=== PATIENT | female | born 1960 | race Asian ===

== ENCOUNTER 2023-12-24 17:30 | Inpatient (IN) | payer MEDICARE, OTHER ==
[~2023-12-24] VITALS: Ht 167.6 cm; Wt 51.3 kg
[2023-12-24 17:53] LABS: BASOPHILS # (AUTO) 0.1 K/uL (0.0-0.2); BASOPHILS % (AUTO) 0.6 % (0.0-2.0); EOSINOPHILS % (AUTO) 9.7 % (0.0-6.0); HEMATOCRIT 35 % (33-45); HEMOGLOBIN 11.2 g/dL (11.5-14.8); LYMPHOCYTES # (AUTO) 1.1 K/uL (0.8-4.8); LYMPHOCYTES % (AUTO) 11.6 % (20.0-44.0); MEAN CORPUSCULAR HEMOGLOBIN 28 PG (26.0-33.0); MEAN CORPUSCULAR HGB CONC 32 g/dl (31.0-36.0); MEAN CORPUSCULAR VOLUME 88 fL (82-100); MONOCYTES # (AUTO) 0.9 K/uL (0.1-1.30); MONOCYTES % (AUTO) 9.1 % (2.0-12.0); NEUTROPHILS # (AUTO) 6.8 K/uL (1.8-8.9); PLATELET COUNT (AUTO) 261 K/uL (150-450); RED BLOOD CELL COUNT(AUTO) 3.96 MIL/uL (4.0-5.2); RED CELL DISTRIBUTION WIDTH 16.9 % (11.5-15.0); WHITE BLOOD COUNT (AUTO) 9.9 K/uL (4.3-11.0)
[2023-12-24 18:17] LABS: LACTIC ACID 0.5 mmol/L (0.4-2.0)
[2023-12-24 18:22] LABS: ABG BASE EXCESS 3.1 mmol/L (-2.0-3.0); ABG OXYGEN SATURATION 96.6 % (94.0-98.0); ABG PCO2 52.6 mmHg (32.0-45.0); ABG PH 7.365 (7.350-7.450); ABG PO2 95.5 mmHg (83.0-108.0); ABG TOTAL HEMOGLOBIN 11.6 G/dL (12.0-16.0); COHb 0.2 % (0.5-1.5); MetHb 0.3 % (0.0-1.5); O2Hb 96.1 % (94.0-97.0); SITE, ABG RIGHT RADIAL
[2023-12-24 18:23] LABS: CALCIUM, SERUM 9.4 mg/dL (8.5-10.1); CARBON DIOXIDE 31 mmol/L (21-32); CHLORIDE 92 mmol/L (98-107); CREATININE 5.4 mg/dL (0.6-1.3); GLUCOSE 123 mg/dL (74-106); SODIUM SERUM 130 mmol/L (136-145); UREA NITROGEN, BLOOD 55 mg/dL (7-18)
[2023-12-24 18:26] LABS: NT-PRO BNP > 25000 pg/mL (0-125); POTASSIUM 6.3 mmol/L (3.5-5.1)
[2023-12-24] MEDS ORDERED: SODIUM BICARBONATE SYR 50 MEQ/50 ML DISP.SYRIN ONE (18:51)
[2023-12-24] MEDS ORDERED: DEXTROSE 50%-WATER 50 ML DISP.SYRIN ONE (18:51)
[2023-12-24] MEDS ORDERED: CALCIUM CHLORIDE 1,000 MG/10 ML DISP.SYRIN ONE (18:51)
[2023-12-24] MEDS ORDERED: ATOR20TA PO (18:55)
[2023-12-24] MEDS ORDERED: INSU100I40 SQ (18:55)
[2023-12-24] MEDS ORDERED: AMLO-212 PO (18:55)
[2023-12-24] MEDS ORDERED: ONDA4TAB11 PO (18:55)
[2023-12-24] MEDS ORDERED: SENN-261 PO (18:55)
[2023-12-24] MEDS ORDERED: CLON0.1T PO (18:55)
[2023-12-24] MEDS ORDERED: FOLI0.8T23 PO (18:55)
[2023-12-24] MEDS ORDERED: FERR325T24 PO (18:55)
[2023-12-24] MEDS ORDERED: POLY17PO4 PO (18:55)
[2023-12-24] MEDS ORDERED: VITS42.53 TP (18:55)
[2023-12-24] MEDS ORDERED: CALC667C6 PO (18:55)
[2023-12-24] MEDS ORDERED: ASPI-1169 PO (18:55)
[2023-12-24] MEDS ORDERED: CARV6.252 PO (18:55)
[2023-12-24] MEDS: SODIUM BICARBONATE SYR 50 MEQ/50 ML DISP.SYRIN IV ONE (19:10)
[2023-12-24] MEDS: INSULIN REGULAR, HUMAN 100 UNIT/ML 10 ML VIAL IV ONE (19:10)
[2023-12-24] MEDS: CALCIUM CHLORIDE 1,000 MG/10 ML DISP.SYRIN IV ONE (19:10)
[2023-12-24] MEDS: DEXTROSE 50%-WATER 50 ML DISP.SYRIN IV ONE (19:10)
[2023-12-24] MEDS: ALBUTEROL FS 2.5 MG/3 ML VIAL.NEB NEB ONE (19:21)
[2023-12-24] MEDS ORDERED: ALBUTEROL FS 2.5 MG/3 ML VIAL.NEB ONE (19:22)
[2023-12-24] MEDS ORDERED: MAGNESIUM HYDROXIDE 30 ML UDC PO PRN (19:30)
[2023-12-24] MEDS ORDERED: SENNOSIDES 8.6 MG TABLET PO PRN (19:30)
[2023-12-24] MEDS ORDERED: Z GUARD REMEDY 4 OZ OINT TP PRN (19:30)
[2023-12-24] MEDS ORDERED: MAG HYDROX/AL HYDROX/SIMETH 30 ML UDC PO PRN (19:30)
[2023-12-24 20:00] VITALS: BP 166/58; TEMP 97.8; O2SAT 97
[2023-12-24 21:00] VITALS: BP 177/79; O2SAT 98
[2023-12-24 22:00] VITALS: BP 168/65; O2SAT 98
[2023-12-24] MEDS: ATORVASTATIN 10 MG TABLET PO SCH (22:34)
[2023-12-24] MEDS: BLOOD SUGAR DIAGNOSTIC 1 EACH STRIP IN SCH (22:47)
[2023-12-24] MEDS: INSULIN REGULAR, HUMAN 100 UNIT/ML 3 ML VIAL SQ PRN (22:49)
[2023-12-24 23:00] VITALS: BP 179/71; O2SAT 98
[2023-12-25] VITALS (33 sets, daily range): BP systolic 103–176; BP diastolic 43–80; TEMP 97.6–98; O2SAT 93–100
[2023-12-25] MEDS: CLONIDINE HCL 0.1 MG TABLET PO PRN (01:15)
[2023-12-25] MEDS: ZOLPIDEM TARTRATE 5 MG TABLET PO PRN (01:20)
[2023-12-25] MEDS: hydrALAZINE HCL IV 20 MG VIAL IV ONE (05:25)
[2023-12-25 05:44] LABS: BASOPHILS % (AUTO) 0.4 % (0.0-2.0); EOSINOPHILS # (AUTO) 0.7 K/uL (0.0-0.7); EOSINOPHILS % (AUTO) 7.9 % (0.0-6.0); HEMATOCRIT 33 % (33-45); HEMOGLOBIN 10.4 g/dL (11.5-14.8); LYMPHOCYTES # (AUTO) 1.1 K/uL (0.8-4.8); LYMPHOCYTES % (AUTO) 12.5 % (20.0-44.0); MEAN CORPUSCULAR HEMOGLOBIN 28 PG (26.0-33.0); MEAN CORPUSCULAR HGB CONC 32 g/dl (31.0-36.0); MEAN CORPUSCULAR VOLUME 87 fL (82-100); MONOCYTES # (AUTO) 0.6 K/uL (0.1-1.30); MONOCYTES % (AUTO) 6.9 % (2.0-12.0); NEUTROPHILS # (AUTO) 6.4 K/uL (1.8-8.9); NEUTROPHILS % (AUTO) 72.3 % (43.0-81.0); PLATELET COUNT (AUTO) 226 K/uL (150-450); RED BLOOD CELL COUNT(AUTO) 3.72 MIL/uL (4.0-5.2); RED CELL DISTRIBUTION WIDTH 16.6 % (11.5-15.0); WHITE BLOOD COUNT (AUTO) 8.9 K/uL (4.3-11.0)
[2023-12-25 05:59] LABS: CALCIUM, SERUM 10.2 mg/dL (8.5-10.1); CREATININE 6.1 mg/dL (0.6-1.3); MAGNESIUM 3.5 mg/dL (1.8-2.4)
[2023-12-25 06:05] LABS: PHOSPHORUS 8.1 mg/dL (2.5-4.9); POTASSIUM 6.6 mmol/L (3.5-5.1)
[2023-12-25 06:14] LABS: ABG OXYGEN SATURATION 98.3 % (94.0-98.0); ABG PCO2 56.9 mmHg (32.0-45.0); ABG PH 7.363 (7.350-7.450); ABG PO2 141.9 mmHg (83.0-108.0); ABG TOTAL HEMOGLOBIN 11.1 G/dL (12.0-16.0); COHb 0.8 % (0.5-1.5); MetHb 0.3 % (0.0-1.5); O2Hb 97.2 % (94.0-97.0); SITE, ABG UC
[2023-12-25] MEDS: POLYETHYLENE GLYCOL 3350 17 GM POWD.PACK PO SCH (08:45)
[2023-12-25] MEDS: VIT B CMPLX 3/FA/VIT C/BIOTIN 1 TAB TABLET PO SCH (08:46)
[2023-12-25] MEDS: FERROUS SULFATE (325 MG) 325 MG/TAB TABLET PO SCH (08:46)
[2023-12-25] MEDS: ASPIRIN 81 MG TAB.CHEW PO SCH (08:46)
[2023-12-25] MEDS: CARVEDILOL 6.25 MG TABLET PO SCH (08:46)
[2023-12-25] MEDS: AMLODIPINE BESYLATE 5 MG TABLET PO SCH (08:46)
[2023-12-25] MEDS: CALCIUM ACETATE 667 MG CAP/TAB PO SCH (08:46)
[2023-12-25] MEDS: VITAMINS A AND D 56.7 GM TUBE TP SCH (08:47)
[2023-12-25 08:48] LABS: CALCIUM, SERUM 9.1 mg/dL (8.5-10.1); CREATININE 3.6 mg/dL (0.6-1.3); POTASSIUM 4.4 mmol/L (3.5-5.1)
[2023-12-25] MEDS: IPRATROPIUM NEB FS 0.5 MG/2.5 ML AMPUL.NEB NEB SCH (09:54)
[2023-12-25] MEDS: ALBUTEROL HALF STRENGTH 1.25 MG/3 ML VIAL.NEB NEB SCH (09:54)
[2023-12-25 11:31] LABS: INR 1.1 (0.91-1.10); PROTHROMBIN TIME 11.6 SECS (9.2-11.1)
[2023-12-25 13:28] LABS: ABG BASE EXCESS 4.5 mmol/L (-2.0-3.0); ABG OXYGEN SATURATION 95.6 % (94.0-98.0); ABG PCO2 52.7 mmHg (32.0-45.0); ABG PH 7.382 (7.350-7.450); ABG PO2 85.2 mmHg (83.0-108.0); ABG TOTAL HEMOGLOBIN 11.2 G/dL (12.0-16.0); COHb 1.1 % (0.5-1.5); MetHb 0.3 % (0.0-1.5); O2Hb 94.3 % (94.0-97.0); SITE, ABG RIGHT RADIAL
[2023-12-25 15:48] LABS: TOTAL VOLUME,BODY FLUID 1300 mL
[2023-12-25 16:03] LABS: PROTEIN, BODY FLUID 3.9 G/DL
[2023-12-25 16:12] LABS: WBC, BODY FLUID 189 /cu. mm. (0-200)
[2023-12-25 16:17] LABS: APPEARANCE,SPUN,BODY FLUID CLEAR (CLEAR)
[2023-12-25 16:43] LABS: MACROPHAGES, BODY FLUID 77; POLYNUCLEAR, BODY FLUID 4 % (0-25)
[2023-12-26] VITALS (40 sets, daily range): BP systolic 102–175; BP diastolic 46–89; TEMP 97.6–98.1; O2SAT 85–100
[2023-12-26 05:11] LABS: HEPATITIS Be AG Negative (Negative)
[2023-12-26 05:17] LABS: BASOPHILS % (AUTO) 0.4 % (0.0-2.0); EOSINOPHILS # (AUTO) 0.8 K/uL (0.0-0.7); EOSINOPHILS % (AUTO) 6.8 % (0.0-6.0); HEMATOCRIT 32 % (33-45); HEMOGLOBIN 10.3 g/dL (11.5-14.8); LYMPHOCYTES # (AUTO) 0.9 K/uL (0.8-4.8); MEAN CORPUSCULAR HEMOGLOBIN 28 PG (26.0-33.0); MEAN CORPUSCULAR HGB CONC 32 g/dl (31.0-36.0); MEAN CORPUSCULAR VOLUME 87 fL (82-100); MONOCYTES # (AUTO) 0.9 K/uL (0.1-1.30); MONOCYTES % (AUTO) 8.2 % (2.0-12.0); NEUTROPHILS # (AUTO) 8.9 K/uL (1.8-8.9); NEUTROPHILS % (AUTO) 76.6 % (43.0-81.0); PLATELET COUNT (AUTO) 230 K/uL (150-450); RED BLOOD CELL COUNT(AUTO) 3.65 MIL/uL (4.0-5.2); RED CELL DISTRIBUTION WIDTH 16.4 % (11.5-15.0); WHITE BLOOD COUNT (AUTO) 11.6 K/uL (4.3-11.0)
[2023-12-27] VITALS (14 sets, daily range): BP systolic 132–174; BP diastolic 61–77; TEMP 97.7–98.4; O2SAT 84–100
[2023-12-27 04:11] LABS: HEPATITIS Be AB Non Reactive (Negative)
[2023-12-27 05:58] LABS: BASOPHILS % (AUTO) 0.3 % (0.0-2.0); EOSINOPHILS # (AUTO) 0.6 K/uL (0.0-0.7); EOSINOPHILS % (AUTO) 7.3 % (0.0-6.0); HEMATOCRIT 31 % (33-45); HEMOGLOBIN 10.2 g/dL (11.5-14.8); LYMPHOCYTES # (AUTO) 0.9 K/uL (0.8-4.8); LYMPHOCYTES % (AUTO) 10.1 % (20.0-44.0); MEAN CORPUSCULAR HEMOGLOBIN 29 PG (26.0-33.0); MEAN CORPUSCULAR HGB CONC 33 g/dl (31.0-36.0); MEAN CORPUSCULAR VOLUME 87 fL (82-100); MONOCYTES # (AUTO) 0.7 K/uL (0.1-1.30); MONOCYTES % (AUTO) 8.4 % (2.0-12.0); NEUTROPHILS # (AUTO) 6.2 K/uL (1.8-8.9); NEUTROPHILS % (AUTO) 73.9 % (43.0-81.0); PLATELET COUNT (AUTO) 207 K/uL (150-450); RED BLOOD CELL COUNT(AUTO) 3.55 MIL/uL (4.0-5.2); RED CELL DISTRIBUTION WIDTH 16.3 % (11.5-15.0); WHITE BLOOD COUNT (AUTO) 8.4 K/uL (4.3-11.0)
[2023-12-27 06:29] LABS: CALCIUM, SERUM 8.9 mg/dL (8.5-10.1); CREATININE 3.7 mg/dL (0.6-1.3); POTASSIUM 5.8 mmol/L (3.5-5.1)
[2023-12-27] MEDS: ONDANSETRON HCL/PF 4 MG/2 ML VIAL IVP PRN (14:03)
[2023-12-28] VITALS (18 sets, daily range): BP systolic 123–160; BP diastolic 49–76; TEMP 97.4–99; O2SAT 88–98
[2023-12-28 06:21] LABS: BASOPHILS % (AUTO) 0.4 % (0.0-2.0); EOSINOPHILS # (AUTO) 0.5 K/uL (0.0-0.7); EOSINOPHILS % (AUTO) 5.4 % (0.0-6.0); HEMATOCRIT 30 % (33-45); LYMPHOCYTES # (AUTO) 0.8 K/uL (0.8-4.8); LYMPHOCYTES % (AUTO) 9.1 % (20.0-44.0); MEAN CORPUSCULAR HEMOGLOBIN 29 PG (26.0-33.0); MEAN CORPUSCULAR HGB CONC 33 g/dl (31.0-36.0); MEAN CORPUSCULAR VOLUME 88 fL (82-100); MONOCYTES # (AUTO) 0.8 K/uL (0.1-1.30); MONOCYTES % (AUTO) 9.1 % (2.0-12.0); NEUTROPHILS # (AUTO) 6.4 K/uL (1.8-8.9); PLATELET COUNT (AUTO) 201 K/uL (150-450); RED BLOOD CELL COUNT(AUTO) 3.46 MIL/uL (4.0-5.2); RED CELL DISTRIBUTION WIDTH 16.1 % (11.5-15.0); WHITE BLOOD COUNT (AUTO) 8.5 K/uL (4.3-11.0)
[2023-12-28 06:52] LABS: CALCIUM, SERUM 8.8 mg/dL (8.5-10.1)
[2023-12-28 07:24] LABS: POTASSIUM 6.6 mmol/L (3.5-5.1)
[2023-12-28 21:03] LABS: ABG BASE EXCESS 2.3 mmol/L (-2.0-3.0); ABG OXYGEN SATURATION 89.4 % (94.0-98.0); ABG PCO2 50.1 mmHg (32.0-45.0); ABG PH 7.367 (7.350-7.450); ABG PO2 59.5 mmHg (83.0-108.0); ABG TOTAL HEMOGLOBIN 9.6 G/dL (12.0-16.0); COHb 0.8 % (0.5-1.5); MetHb 0.3 % (0.0-1.5); O2Hb 88.4 % (94.0-97.0); SITE, ABG RIGHT RADIAL
[2023-12-28] MEDS: ZOLPIDEM TARTRATE 5 MG TABLET PO ONE (23:22)
[2023-12-29] VITALS (29 sets, daily range): BP systolic 116–155; BP diastolic 52–76; TEMP 97.9–98.8; O2SAT 87–99
[2023-12-29 04:27] LABS: BASOPHILS % (AUTO) 0.5 % (0.0-2.0); EOSINOPHILS # (AUTO) 0.5 K/uL (0.0-0.7); EOSINOPHILS % (AUTO) 7.1 % (0.0-6.0); HEMATOCRIT 29 % (33-45); HEMOGLOBIN 9.2 g/dL (11.5-14.8); MEAN CORPUSCULAR HEMOGLOBIN 28 PG (26.0-33.0); MEAN CORPUSCULAR HGB CONC 32 g/dl (31.0-36.0); MEAN CORPUSCULAR VOLUME 88 fL (82-100); MONOCYTES # (AUTO) 0.6 K/uL (0.1-1.30); MONOCYTES % (AUTO) 9.6 % (2.0-12.0); NEUTROPHILS # (AUTO) 4.4 K/uL (1.8-8.9); NEUTROPHILS % (AUTO) 67.8 % (43.0-81.0); PLATELET COUNT (AUTO) 193 K/uL (150-450); RED BLOOD CELL COUNT(AUTO) 3.27 MIL/uL (4.0-5.2); RED CELL DISTRIBUTION WIDTH 16.2 % (11.5-15.0); WHITE BLOOD COUNT (AUTO) 6.5 K/uL (4.3-11.0)
[2023-12-29 04:40] LABS: CALCIUM, SERUM 8.9 mg/dL (8.5-10.1); CREATININE 3.5 mg/dL (0.6-1.3); POTASSIUM 5.3 mmol/L (3.5-5.1)
[2023-12-29] MEDS: DEXTROSE 50%-WATER 50 ML DISP.SYRIN IV PRN (10:00)
[2023-12-30] VITALS (34 sets, daily range): BP systolic 96–155; BP diastolic 48–94; TEMP 97.6–98; O2SAT 94–100
[2023-12-30 04:39] LABS: BASOPHILS % (AUTO) 0.4 % (0.0-2.0); EOSINOPHILS # (AUTO) 0.6 K/uL (0.0-0.7); EOSINOPHILS % (AUTO) 7.1 % (0.0-6.0); HEMATOCRIT 29 % (33-45); HEMOGLOBIN 9.2 g/dL (11.5-14.8); LYMPHOCYTES % (AUTO) 11.2 % (20.0-44.0); MEAN CORPUSCULAR HEMOGLOBIN 28 PG (26.0-33.0); MEAN CORPUSCULAR HGB CONC 32 g/dl (31.0-36.0); MEAN CORPUSCULAR VOLUME 87 fL (82-100); MONOCYTES # (AUTO) 0.9 K/uL (0.1-1.30); MONOCYTES % (AUTO) 9.5 % (2.0-12.0); NEUTROPHILS # (AUTO) 6.5 K/uL (1.8-8.9); NEUTROPHILS % (AUTO) 71.8 % (43.0-81.0); PLATELET COUNT (AUTO) 221 K/uL (150-450); RED BLOOD CELL COUNT(AUTO) 3.28 MIL/uL (4.0-5.2); RED CELL DISTRIBUTION WIDTH 15.5 % (11.5-15.0); WHITE BLOOD COUNT (AUTO) 9.1 K/uL (4.3-11.0)
[2023-12-30 04:50] LABS: CALCIUM, SERUM 9.2 mg/dL (8.5-10.1); CREATININE 5.1 mg/dL (0.6-1.3); POTASSIUM 5.9 mmol/L (3.5-5.1)
[2023-12-30] MEDS ORDERED: FLUMAZENIL 0.5 MG VIAL IV PRN (15:30)
[2023-12-30] MEDS ORDERED: NALOXONE PREFILLED SYRINGE 2 MG/2 ML SYRINGE IV PRN (15:30)
[2023-12-30] MEDS ORDERED: MIDAZOLAM HCL 2 MG/2ML VIAL IV PRN (15:30)
[2023-12-30] MEDS ORDERED: FENTANYL PF 250MCG/5ML AMPUL IV PRN (15:30)
[2023-12-30] MEDS: IV NS 0.9% 1,000 ML IV PRN (23:26)
[2023-12-31] VITALS (30 sets, daily range): BP systolic 103–164; BP diastolic 45–132; TEMP 97.8–98.2; O2SAT 83–100
[2023-12-31 04:24] LABS: BASOPHILS % (AUTO) 0.3 % (0.0-2.0); EOSINOPHILS # (AUTO) 0.7 K/uL (0.0-0.7); EOSINOPHILS % (AUTO) 10.5 % (0.0-6.0); HEMATOCRIT 29 % (33-45); HEMOGLOBIN 9.5 g/dL (11.5-14.8); LYMPHOCYTES # (AUTO) 0.5 K/uL (0.8-4.8); LYMPHOCYTES % (AUTO) 7.5 % (20.0-44.0); MEAN CORPUSCULAR HEMOGLOBIN 28 PG (26.0-33.0); MEAN CORPUSCULAR HGB CONC 32 g/dl (31.0-36.0); MEAN CORPUSCULAR VOLUME 86 fL (82-100); MONOCYTES # (AUTO) 0.7 K/uL (0.1-1.30); MONOCYTES % (AUTO) 10.6 % (2.0-12.0); NEUTROPHILS # (AUTO) 4.8 K/uL (1.8-8.9); NEUTROPHILS % (AUTO) 71.1 % (43.0-81.0); PLATELET COUNT (AUTO) 241 K/uL (150-450); RED BLOOD CELL COUNT(AUTO) 3.42 MIL/uL (4.0-5.2); RED CELL DISTRIBUTION WIDTH 15.2 % (11.5-15.0); WHITE BLOOD COUNT (AUTO) 6.7 K/uL (4.3-11.0)
[2023-12-31 04:36] LABS: CALCIUM, SERUM 8.6 mg/dL (8.5-10.1); CREATININE 3.1 mg/dL (0.6-1.3); POTASSIUM 4.3 mmol/L (3.5-5.1)
[2023-12-31] MEDS ORDERED: NEPRO VAN 237 ML CAN PO PRN (14:00)
[2024-01-01] VITALS (33 sets, daily range): BP systolic 113–166; BP diastolic 39–80; TEMP 98–98.7; O2SAT 93–100
[2024-01-01 04:03] LABS: BASOPHILS % (AUTO) 0.5 % (0.0-2.0); EOSINOPHILS # (AUTO) 0.8 K/uL (0.0-0.7); EOSINOPHILS % (AUTO) 9.7 % (0.0-6.0); HEMATOCRIT 30 % (33-45); HEMOGLOBIN 9.6 g/dL (11.5-14.8); LYMPHOCYTES # (AUTO) 1.3 K/uL (0.8-4.8); LYMPHOCYTES % (AUTO) 15.1 % (20.0-44.0); MEAN CORPUSCULAR HEMOGLOBIN 28 PG (26.0-33.0); MEAN CORPUSCULAR HGB CONC 32 g/dl (31.0-36.0); MEAN CORPUSCULAR VOLUME 87 fL (82-100); MONOCYTES # (AUTO) 0.8 K/uL (0.1-1.30); NEUTROPHILS # (AUTO) 5.5 K/uL (1.8-8.9); NEUTROPHILS % (AUTO) 65.7 % (43.0-81.0); PLATELET COUNT (AUTO) 248 K/uL (150-450); RED BLOOD CELL COUNT(AUTO) 3.39 MIL/uL (4.0-5.2); WHITE BLOOD COUNT (AUTO) 8.4 K/uL (4.3-11.0)
[2024-01-01 04:21] LABS: CALCIUM, SERUM 8.6 mg/dL (8.5-10.1); CREATININE 5.3 mg/dL (0.6-1.3); POTASSIUM 6.1 mmol/L (3.5-5.1)
[2024-01-02] VITALS (36 sets, daily range): BP systolic 112–163; BP diastolic 38–72; TEMP 98.1–98.5; O2SAT 95–100
[2024-01-02 04:47] LABS: BASOPHILS % (AUTO) 0.2 % (0.0-2.0); EOSINOPHILS # (AUTO) 0.8 K/uL (0.0-0.7); EOSINOPHILS % (AUTO) 10.2 % (0.0-6.0); HEMATOCRIT 29 % (33-45); HEMOGLOBIN 9.1 g/dL (11.5-14.8); LYMPHOCYTES % (AUTO) 12.9 % (20.0-44.0); MEAN CORPUSCULAR HEMOGLOBIN 28 PG (26.0-33.0); MEAN CORPUSCULAR HGB CONC 32 g/dl (31.0-36.0); MEAN CORPUSCULAR VOLUME 87 fL (82-100); MONOCYTES # (AUTO) 0.8 K/uL (0.1-1.30); MONOCYTES % (AUTO) 10.3 % (2.0-12.0); NEUTROPHILS # (AUTO) 5.4 K/uL (1.8-8.9); NEUTROPHILS % (AUTO) 66.4 % (43.0-81.0); PLATELET COUNT (AUTO) 257 K/uL (150-450); RED CELL DISTRIBUTION WIDTH 15.3 % (11.5-15.0); WHITE BLOOD COUNT (AUTO) 8.1 K/uL (4.3-11.0)
[2024-01-02 05:09] LABS: CALCIUM, SERUM 8.5 mg/dL (8.5-10.1); POTASSIUM 5.5 mmol/L (3.5-5.1)
[2024-01-02] MEDS ORDERED: NEPRO VAN 237 ML CAN PO PRN (13:30)
[2024-01-03] VITALS (33 sets, daily range): BP systolic 102–160; BP diastolic 44–72; TEMP 97.6–98.3; O2SAT 95–100
[2024-01-03 04:55] LABS: BASOPHILS % (AUTO) 0.3 % (0.0-2.0); EOSINOPHILS # (AUTO) 0.8 K/uL (0.0-0.7); EOSINOPHILS % (AUTO) 11.2 % (0.0-6.0); HEMATOCRIT 27 % (33-45); HEMOGLOBIN 8.7 g/dL (11.5-14.8); LYMPHOCYTES # (AUTO) 1.2 K/uL (0.8-4.8); LYMPHOCYTES % (AUTO) 16.4 % (20.0-44.0); MEAN CORPUSCULAR HEMOGLOBIN 28 PG (26.0-33.0); MEAN CORPUSCULAR HGB CONC 33 g/dl (31.0-36.0); MEAN CORPUSCULAR VOLUME 86 fL (82-100); MONOCYTES # (AUTO) 0.6 K/uL (0.1-1.30); MONOCYTES % (AUTO) 8.2 % (2.0-12.0); NEUTROPHILS # (AUTO) 4.6 K/uL (1.8-8.9); NEUTROPHILS % (AUTO) 63.9 % (43.0-81.0); PLATELET COUNT (AUTO) 254 K/uL (150-450); WHITE BLOOD COUNT (AUTO) 7.2 K/uL (4.3-11.0)
[2024-01-03 04:59] LABS: CALCIUM, SERUM 9.1 mg/dL (8.5-10.1); CREATININE 5.1 mg/dL (0.6-1.3); POTASSIUM 5.6 mmol/L (3.5-5.1)
[2024-01-04] VITALS (30 sets, daily range): BP systolic 107–162; BP diastolic 50–87; TEMP 96.8–98.6; O2SAT 89–100
[2024-01-04 03:58] LABS: BASOPHILS % (AUTO) 0.4 % (0.0-2.0); EOSINOPHILS # (AUTO) 0.7 K/uL (0.0-0.7); EOSINOPHILS % (AUTO) 10.5 % (0.0-6.0); HEMATOCRIT 27 % (33-45); HEMOGLOBIN 8.9 g/dL (11.5-14.8); LYMPHOCYTES # (AUTO) 0.9 K/uL (0.8-4.8); LYMPHOCYTES % (AUTO) 13.2 % (20.0-44.0); MEAN CORPUSCULAR HEMOGLOBIN 28 PG (26.0-33.0); MEAN CORPUSCULAR HGB CONC 33 g/dl (31.0-36.0); MEAN CORPUSCULAR VOLUME 85 fL (82-100); MONOCYTES # (AUTO) 0.5 K/uL (0.1-1.30); MONOCYTES % (AUTO) 7.5 % (2.0-12.0); NEUTROPHILS # (AUTO) 4.7 K/uL (1.8-8.9); NEUTROPHILS % (AUTO) 68.4 % (43.0-81.0); PLATELET COUNT (AUTO) 229 K/uL (150-450); RED CELL DISTRIBUTION WIDTH 14.7 % (11.5-15.0); WHITE BLOOD COUNT (AUTO) 6.9 K/uL (4.3-11.0)
[2024-01-04 04:03] LABS: CALCIUM, SERUM 8.7 mg/dL (8.5-10.1); CREATININE 3.8 mg/dL (0.6-1.3); POTASSIUM 4.9 mmol/L (3.5-5.1)
[2024-01-05] VITALS (30 sets, daily range): BP systolic 120–168; BP diastolic 47–88; TEMP 96.5–97.9; O2SAT 70–100
[2024-01-05] MEDS: ACETAMINOPHEN 325 MG TABLET PO PRN (02:39)
[2024-01-05] MEDS: ALTEPLASE CATHFLO 2 MG/VIAL XX ONE (13:49)
[2024-01-06] VITALS (18 sets, daily range): BP systolic 129–164; BP diastolic 58–81; TEMP 97.9–98.1; O2SAT 95–100
[2024-01-06 04:01] LABS: BASOPHILS % (AUTO) 0.5 % (0.0-2.0); EOSINOPHILS # (AUTO) 0.2 K/uL (0.0-0.7); EOSINOPHILS % (AUTO) 2.6 % (0.0-6.0); HEMATOCRIT 29 % (33-45); HEMOGLOBIN 9.1 g/dL (11.5-14.8); LYMPHOCYTES # (AUTO) 0.7 K/uL (0.8-4.8); LYMPHOCYTES % (AUTO) 8.1 % (20.0-44.0); MEAN CORPUSCULAR HEMOGLOBIN 28 PG (26.0-33.0); MEAN CORPUSCULAR HGB CONC 32 g/dl (31.0-36.0); MEAN CORPUSCULAR VOLUME 86 fL (82-100); MONOCYTES # (AUTO) 0.4 K/uL (0.1-1.30); MONOCYTES % (AUTO) 5.1 % (2.0-12.0); NEUTROPHILS # (AUTO) 7.3 K/uL (1.8-8.9); NEUTROPHILS % (AUTO) 83.7 % (43.0-81.0); PLATELET COUNT (AUTO) 233 K/uL (150-450); RED BLOOD CELL COUNT(AUTO) 3.32 MIL/uL (4.0-5.2); RED CELL DISTRIBUTION WIDTH 14.6 % (11.5-15.0); WHITE BLOOD COUNT (AUTO) 8.7 K/uL (4.3-11.0)
[2024-01-06 04:14] LABS: CREATININE 3.5 mg/dL (0.6-1.3); POTASSIUM 5.2 mmol/L (3.5-5.1)
[2024-01-06] MEDS: SODIUM ZIRCONIUM CYCLOSILICATE 5 GM POWD.PACK PO ONE ×2 (08:00→11:14)
[2024-01-07] VITALS (12 sets, daily range): BP systolic 114–144; BP diastolic 49–70; TEMP 97.2–98.6; O2SAT 93–100
[2024-01-07 08:11] LABS: BASOPHILS % (AUTO) 0.2 % (0.0-2.0); EOSINOPHILS # (AUTO) 0.6 K/uL (0.0-0.7); EOSINOPHILS % (AUTO) 7.2 % (0.0-6.0); HEMATOCRIT 27 % (33-45); HEMOGLOBIN 8.8 g/dL (11.5-14.8); LYMPHOCYTES # (AUTO) 0.8 K/uL (0.8-4.8); MEAN CORPUSCULAR HEMOGLOBIN 28 PG (26.0-33.0); MEAN CORPUSCULAR HGB CONC 33 g/dl (31.0-36.0); MEAN CORPUSCULAR VOLUME 86 fL (82-100); MONOCYTES # (AUTO) 0.6 K/uL (0.1-1.30); MONOCYTES % (AUTO) 6.5 % (2.0-12.0); NEUTROPHILS # (AUTO) 6.8 K/uL (1.8-8.9); NEUTROPHILS % (AUTO) 77.1 % (43.0-81.0); PLATELET COUNT (AUTO) 254 K/uL (150-450); RED BLOOD CELL COUNT(AUTO) 3.15 MIL/uL (4.0-5.2); RED CELL DISTRIBUTION WIDTH 14.7 % (11.5-15.0); WHITE BLOOD COUNT (AUTO) 8.8 K/uL (4.3-11.0)
[2024-01-07 08:32] LABS: CREATININE 5.1 mg/dL (0.6-1.3); POTASSIUM 5.4 mmol/L (3.5-5.1)
[2024-01-08] VITALS (9 sets, daily range): BP systolic 134–150; BP diastolic 56–66; TEMP 97.5–98.8; O2SAT 95–100
[2024-01-09] VITALS (9 sets, daily range): BP systolic 123–139; BP diastolic 55–60; TEMP 98.2–98.4; O2SAT 96–99
[2024-01-10] VITALS (7 sets, daily range): BP systolic 128–133; BP diastolic 54–55; TEMP 98.5–98.7; O2SAT 90–98
[2024-01-11] VITALS (7 sets, daily range): BP systolic 145; BP diastolic 55; O2SAT 93–98
[2024-01-11 06:10] LABS: BASOPHILS % (AUTO) 0.3 % (0.0-2.0); EOSINOPHILS # (AUTO) 0.9 K/uL (0.0-0.7); EOSINOPHILS % (AUTO) 11.2 % (0.0-6.0); HEMATOCRIT 26 % (33-45); HEMOGLOBIN 8.2 g/dL (11.5-14.8); LYMPHOCYTES % (AUTO) 12.3 % (20.0-44.0); MEAN CORPUSCULAR HEMOGLOBIN 28 PG (26.0-33.0); MEAN CORPUSCULAR HGB CONC 32 g/dl (31.0-36.0); MEAN CORPUSCULAR VOLUME 87 fL (82-100); MONOCYTES # (AUTO) 0.6 K/uL (0.1-1.30); MONOCYTES % (AUTO) 7.5 % (2.0-12.0); NEUTROPHILS # (AUTO) 5.7 K/uL (1.8-8.9); NEUTROPHILS % (AUTO) 68.7 % (43.0-81.0); PLATELET COUNT (AUTO) 332 K/uL (150-450); RED BLOOD CELL COUNT(AUTO) 2.93 MIL/uL (4.0-5.2); RED CELL DISTRIBUTION WIDTH 14.6 % (11.5-15.0); WHITE BLOOD COUNT (AUTO) 8.3 K/uL (4.3-11.0)
[2024-01-11 06:17] LABS: CALCIUM, SERUM 9.2 mg/dL (8.5-10.1); CREATININE 4.8 mg/dL (0.6-1.3); POTASSIUM 5.3 mmol/L (3.5-5.1)
== END 2024-01-11 19:03 | DRG 291 ==
LOC: ER 17:34 → ICU 18:44 → TELE1 12-26 18:01 → ICU 12-28 21:54 → TELE1 01-06 09:40 → MEDSG1 01-08 10:07
PROVIDERS: ADMIT Nurse Practitioner Acute Care; ATTEND Internal Medicine
PROC: 5A09357 Assistance with Respiratory Ventilation, Less than 24 Consecutive Hours, Continuous Positive Airway Pressure (ICD-10-PCS; principal; 2023-12-24)
PROC: 5A1D70Z Performance of Urinary Filtration, Intermittent, Less than 6 Hours Per Day (ICD-10-PCS; 2023-12-24)
PROC: 0W9B3ZX Drainage of Left Pleural Cavity, Percutaneous Approach, Diagnostic (ICD-10-PCS; 2023-12-25)
PROC: 0W9B30Z Drainage of Left Pleural Cavity with Drainage Device, Percutaneous Approach (ICD-10-PCS; 2023-12-30)
DX: I13.2 Hypertensive heart and chronic kidney disease with heart failure and with stage 5 chronic kidney disease, or end stage renal disease (principal); I50.23 Acute on chronic systolic (congestive) heart failure; J96.01 Acute respiratory failure with hypoxia; J96.02 Acute respiratory failure with hypercapnia; N18.6 End stage renal disease; J90 Pleural effusion, not elsewhere classified; E87.1 Hypo-osmolality and hyponatremia; I48.20 Chronic atrial fibrillation, unspecified; J94.8 Other specified pleural conditions; J98.19 Other pulmonary collapse; E11.22 Type 2 diabetes mellitus with diabetic chronic kidney disease; E78.5 Hyperlipidemia, unspecified; I42.9 Cardiomyopathy, unspecified; I25.10 Atherosclerotic heart disease of native coronary artery without angina pectoris; I25.2 Old myocardial infarction; Z79.82 Long term (current) use of aspirin; Z79.4 Long term (current) use of insulin; Z79.899 Other long term (current) drug therapy; E87.5 Hyperkalemia; Z95.828 Presence of other vascular implants and grafts; Z86.718 Personal history of other venous thrombosis and embolism; Z99.2 Dependence on renal dialysis; Z99.81 Dependence on supplemental oxygen; M89.8X9 Other specified disorders of bone, unspecified site; J45.909 Unspecified asthma, uncomplicated; D63.1 Anemia in chronic kidney disease; Z98.890 Other specified postprocedural states
CPT/HCPCS: 36415; 36600; 71045-TC; 71250-TC; 80048-TC; 82803-TC; 82962-TC; 83605-TC; 83735-TC; 83880; 84100-TC; 84155-TC; 84484-TC; 85025-TC; 85610-TC; 86707; 87040-TC; 87081-TC; 87102-TC; 87350; 88108-TC; 88305-TC; 89051-TC; 90935-TC; 93307-TC; 94760-TC; 94762-TC; 94799-TC; 97110-TC; 97112-TC; 97116-TC; 97530-TC; 99082-TC; A6403; G0378; J0360; J1815; J2250; J2405; J2997; J3010; J3490; J7030

== ENCOUNTER 2024-06-10 12:56 | Inpatient (IN) | payer MEDICARE, OTHER ==
[~2024-06-10] VITALS: Ht 157.5 cm; Wt 50.1 kg
[2024-06-10] VITALS (7 sets, daily range): BP systolic 104–106; BP diastolic 42–52; TEMP 98.1; O2SAT 99
[~2024-06-10 12:56] MED LIST: AMLO-212 PO; ASPI-1169 PO; ATOR20TA PO; CALC667C6 PO; CARV6.252 PO; CLON0.1T PO; FERR325T24 PO; FOLI0.8T23 PO; INSU100I40 SQ; ONDA4TAB11 PO; POLY17PO4 PO; SENN-261 PO; VITS42.53 TP
[2024-06-10 13:21] LABS: BASOPHILS # (AUTO) 0.1 K/uL (0.0-0.2); BASOPHILS % (AUTO) 0.7 % (0.0-2.0); EOSINOPHILS # (AUTO) 0.5 K/uL (0.0-0.7); EOSINOPHILS % (AUTO) 2.7 % (0.0-6.0); HEMATOCRIT 27 % (33-45); HEMOGLOBIN 8.5 g/dL (11.5-14.8); LYMPHOCYTES # (AUTO) 0.3 K/uL (0.8-4.8); LYMPHOCYTES % (AUTO) 1.8 % (20.0-44.0); MEAN CORPUSCULAR HEMOGLOBIN 26 PG (26.0-33.0); MEAN CORPUSCULAR HGB CONC 31 g/dl (31.0-36.0); MEAN CORPUSCULAR VOLUME 85 fL (82-100); MONOCYTES # (AUTO) 0.6 K/uL (0.1-1.30); MONOCYTES % (AUTO) 3.8 % (2.0-12.0); NEUTROPHILS # (AUTO) 15.3 K/uL (1.8-8.9); PLATELET COUNT (AUTO) 253 K/uL (150-450); RED BLOOD CELL COUNT(AUTO) 3.24 MIL/uL (4.0-5.2); RED CELL DISTRIBUTION WIDTH 17.9 % (11.5-15.0); WHITE BLOOD COUNT (AUTO) 16.8 K/uL (4.3-11.0)
[2024-06-10 13:28] LABS: CALCIUM, SERUM 7.7 mg/dL (8.5-10.1); CARBON DIOXIDE 33 mmol/L (21-32); CHLORIDE 98 mmol/L (98-107); CREATININE 2.2 mg/dL (0.6-1.3); GLUCOSE 106 mg/dL (74-106); POTASSIUM 3.7 mmol/L (3.5-5.1); SODIUM SERUM 133 mmol/L (136-145); UREA NITROGEN, BLOOD 14 mg/dL (7-18)
[2024-06-10 13:37] LABS: ABG BASE EXCESS 1.2 mmol/L (-2.0-3.0); ABG OXYGEN SATURATION 99.5 % (94.0-98.0); ABG PCO2 48.9 mmHg (32.0-45.0); ABG PH 7.359 (7.350-7.450); ABG PO2 236.6 mmHg (83.0-108.0); ABG TOTAL HEMOGLOBIN 8.7 G/dL (12.0-16.0); COHb 0.6 % (0.5-1.5); MetHb 0.3 % (0.0-1.5); O2Hb 98.6 % (94.0-97.0); SITE, ABG RIGHT RADIAL
[2024-06-10 13:40] LABS: ALANINE AMINOTRANSFERASE 315 U/L (12-78); ALBUMIN 2.9 g/dL (3.4-5.0); ALKALINE PHOSPHATASE 118 U/L (46-116); ASPARTATE AMINOTRANSFERASE 51 U/L (15-37); BILIRUBIN,DIRECT 0.2 mg/dL (0.0-0.2); BILIRUBIN,TOTAL 0.5 mg/dL (0.2-1.0); NT-PRO BNP > 25000 pg/mL (0-125); TOTAL PROTEIN, SERUM 7.7 g/dL (6.4-8.2)
[2024-06-10] MEDS ORDERED: ALBUTEROL FS 2.5 MG/3 ML VIAL.NEB ONE (13:44)
[2024-06-10] MEDS: ALBUTEROL FS 2.5 MG/3 ML VIAL.NEB NEB ONE (13:46)
[2024-06-10 14:43] LABS: INR 1.16 (0.91-1.10); PARTIAL THROMBOPLASTIN TIME 32.7 SEC (24.3-34.3); PROTHROMBIN TIME 12.2 SECS (9.2-11.1)
[2024-06-10] MEDS ORDERED: ONDANSETRON HCL/PF 4 MG/2 ML VIAL IVP PRN (15:00)
[2024-06-10] MEDS ORDERED: DEXTROSE 50%-WATER 50 ML DISP.SYRIN IV PRN (15:00)
[2024-06-10] MEDS ORDERED: ALBUTEROL FS 2.5 MG/0.5 ML VIAL.NEB NEB PRN (15:00)
[2024-06-10] MEDS ORDERED: MORPHINE SULFATE INJ 2 MG/ML DISP.SYRIN IV PRN (15:00)
[2024-06-10] MEDS ORDERED: ACETAMINOPHEN 325 MG TABLET PO PRN (15:00)
[2024-06-10] MEDS ORDERED: hydrALAZINE HCL IV 20 MG VIAL IV PRN (15:00)
[2024-06-10] MEDS ORDERED: ZINC57OI4 TP (15:13)
[2024-06-10] MEDS ORDERED: SEVE800T8 PO (15:13)
[2024-06-10] MEDS ORDERED: METO-295 PO (15:13)
[2024-06-10] MEDS ORDERED: AMIN30LI2 PO (15:13)
[2024-06-10] MEDS: FERROUS SULFATE (325 MG) 325 MG/TAB TABLET PO SCH (17:00)
[2024-06-10] MEDS: DOCUSATE SODIUM LIQ 100 MG/10 ML UDC PO SCH (17:00)
[2024-06-10] MEDS: CARVEDILOL 6.25 MG TABLET PO SCH (17:00)
[2024-06-10] MEDS: BLOOD SUGAR DIAGNOSTIC 1 EACH STRIP IN SCH (17:49)
[2024-06-10] MEDS: CEFEPIME 1 GM in IV D5W 50 ML IV SCH (17:49)
[2024-06-10] MEDS: VANCOMYCIN HCL 1.25 GM in IV D5W 250 ML IV ONE (17:59)
[2024-06-10] MEDS: IPRATROPIUM NEB FS 0.5 MG/2.5 ML AMPUL.NEB NEB SCH (20:33)
[2024-06-10] MEDS: HEPARIN SODIUM, PORCINE 5000 UNITS/1 ML VIAL SQ SCH (21:00)
[2024-06-10 21:08] LABS: EOSINOPHILS % (MANUAL) 5 % (0-4); LYMPHOCYTES % (MANUAL) 5 % (16-48); MONOCYTES % (MANUAL) 6 % (0-11.0); NEUTROPHILS % (MANUAL) 84 (42-76); PLATELET ESTIMATE ADEQUATE
[2024-06-10 21:09] LABS: ANISOCYTOSIS 1+
[2024-06-10] MEDS: ATORVASTATIN 10 MG TABLET PO SCH (21:30)
[2024-06-10] MEDS: INSULIN REGULAR, HUMAN 100 UNIT/ML 3 ML VIAL SQ PRN (22:24)
[2024-06-11] VITALS (18 sets, daily range): BP systolic 104–149; BP diastolic 43–60; TEMP 97.3–98.4; O2SAT 94–100
[2024-06-11 07:21] LABS: EOSINOPHILS # (AUTO) 0.3 K/uL (0.0-0.7); EOSINOPHILS % (AUTO) 1.9 % (0.0-6.0); HEMATOCRIT 26 % (33-45); HEMOGLOBIN 7.9 g/dL (11.5-14.8); LYMPHOCYTES # (AUTO) 0.6 K/uL (0.8-4.8); LYMPHOCYTES % (AUTO) 3.5 % (20.0-44.0); MEAN CORPUSCULAR HEMOGLOBIN 26 PG (26.0-33.0); MEAN CORPUSCULAR HGB CONC 31 g/dl (31.0-36.0); MEAN CORPUSCULAR VOLUME 86 fL (82-100); MONOCYTES # (AUTO) 0.7 K/uL (0.1-1.30); MONOCYTES % (AUTO) 4.6 % (2.0-12.0); NEUTROPHILS # (AUTO) 14.3 K/uL (1.8-8.9); PLATELET COUNT (AUTO) 238 K/uL (150-450); RED BLOOD CELL COUNT(AUTO) 2.98 MIL/uL (4.0-5.2); WHITE BLOOD COUNT (AUTO) 15.9 K/uL (4.3-11.0)
[2024-06-11 07:45] LABS: ALBUMIN 2.4 g/dL (3.4-5.0); BILIRUBIN,TOTAL 0.4 mg/dL (0.2-1.0); CALCIUM, SERUM 8.2 mg/dL (8.5-10.1); CREATININE 3.5 mg/dL (0.6-1.3); MAGNESIUM 2.4 mg/dL (1.8-2.4); PHOSPHORUS 4.6 mg/dL (2.5-4.9); TOTAL PROTEIN, SERUM 6.8 g/dL (6.4-8.2)
[2024-06-11] MEDS: POLYETHYLENE GLYCOL 3350 17 GM POWD.PACK PO SCH (09:47)
[2024-06-11] MEDS: AMLODIPINE BESYLATE 5 MG TABLET PO SCH (09:48)
[2024-06-11] MEDS: ASPIRIN 81 MG TAB.CHEW PO SCH (09:49)
[2024-06-11] MEDS: CALCIUM ACETATE 667 MG CAP/TAB PO SCH (09:52)
[2024-06-11] MEDS: ALBUTEROL FS 2.5 MG/0.5 ML VIAL.NEB NEB SCH (13:05)
[2024-06-11] MEDS: ACETYLCYSTEINE 10% SOLN 400 MG/4 ML VIAL NEB SCH (15:08)
[2024-06-12] VITALS (15 sets, daily range): BP systolic 106–148; BP diastolic 51–60; TEMP 97.7–99.1; O2SAT 95–100
[2024-06-12] MEDS: ZOLPIDEM TARTRATE 5 MG TABLET PO ONE (00:05)
[2024-06-12] MEDS ORDERED: VANCOMYCIN 750 MG in IV D5W 250 ML IV SCH (05:00)
[2024-06-12 07:04] LABS: POTASSIUM 3.9 mmol/L (3.5-5.1)
[2024-06-12 10:39] LABS: BASOPHILS # (AUTO) 0.1 K/uL (0.0-0.2); BASOPHILS % (AUTO) 0.7 % (0.0-2.0); EOSINOPHILS # (AUTO) 0.4 K/uL (0.0-0.7); EOSINOPHILS % (AUTO) 3.7 % (0.0-6.0); HEMATOCRIT 27 % (33-45); HEMOGLOBIN 8.4 g/dL (11.5-14.8); LYMPHOCYTES # (AUTO) 0.8 K/uL (0.8-4.8); LYMPHOCYTES % (AUTO) 7.5 % (20.0-44.0); MEAN CORPUSCULAR HEMOGLOBIN 27 PG (26.0-33.0); MEAN CORPUSCULAR HGB CONC 31 g/dl (31.0-36.0); MEAN CORPUSCULAR VOLUME 85 fL (82-100); MONOCYTES # (AUTO) 0.6 K/uL (0.1-1.30); MONOCYTES % (AUTO) 5.8 % (2.0-12.0); NEUTROPHILS # (AUTO) 8.4 K/uL (1.8-8.9); NEUTROPHILS % (AUTO) 82.3 % (43.0-81.0); PLATELET COUNT (AUTO) 303 K/uL (150-450); RED BLOOD CELL COUNT(AUTO) 3.14 MIL/uL (4.0-5.2); RED CELL DISTRIBUTION WIDTH 18.5 % (11.5-15.0); WHITE BLOOD COUNT (AUTO) 10.2 K/uL (4.3-11.0)
[2024-06-13] VITALS (13 sets, daily range): BP systolic 144–147; BP diastolic 53–69; TEMP 97.5–98.4; O2SAT 95–100
[2024-06-13 07:31] LABS: CALCIUM, SERUM 8.9 mg/dL (8.5-10.1); CREATININE 4.5 mg/dL (0.6-1.3); POTASSIUM 5.7 mmol/L (3.5-5.1)
[2024-06-13 09:20] LABS: BASOPHILS # (AUTO) 0.1 K/uL (0.0-0.2); BASOPHILS % (AUTO) 0.7 % (0.0-2.0); EOSINOPHILS # (AUTO) 0.5 K/uL (0.0-0.7); EOSINOPHILS % (AUTO) 4.7 % (0.0-6.0); HEMATOCRIT 26 % (33-45); LYMPHOCYTES # (AUTO) 0.9 K/uL (0.8-4.8); LYMPHOCYTES % (AUTO) 9.5 % (20.0-44.0); MEAN CORPUSCULAR HEMOGLOBIN 26 PG (26.0-33.0); MEAN CORPUSCULAR HGB CONC 31 g/dl (31.0-36.0); MEAN CORPUSCULAR VOLUME 84 fL (82-100); MONOCYTES # (AUTO) 0.8 K/uL (0.1-1.30); MONOCYTES % (AUTO) 8.4 % (2.0-12.0); NEUTROPHILS # (AUTO) 7.6 K/uL (1.8-8.9); NEUTROPHILS % (AUTO) 76.7 % (43.0-81.0); PLATELET COUNT (AUTO) 310 K/uL (150-450); RED BLOOD CELL COUNT(AUTO) 3.07 MIL/uL (4.0-5.2); RED CELL DISTRIBUTION WIDTH 18.4 % (11.5-15.0); WHITE BLOOD COUNT (AUTO) 9.8 K/uL (4.3-11.0)
[2024-06-14] VITALS (7 sets, daily range): BP systolic 153; BP diastolic 60; O2SAT 95–99
[2024-06-14] MEDS ORDERED: VANCOMYCIN 1 GM /D5W 250 ML PB IV ONE (03:50)
[2024-06-14] MEDS: VANCOMYCIN POST DIALYSIS 500MG IV PRN (04:00)
[2024-06-14 06:58] LABS: CALCIUM, SERUM 8.7 mg/dL (8.5-10.1); POTASSIUM 4.6 mmol/L (3.5-5.1)
[2024-06-14] MEDS ORDERED: AMOX-430 PO (12:09)
== END 2024-06-14 16:04 | DRG 871 ==
LOC: ER 12:59 → TELE 16:24 → MED 06-12 09:00
PROVIDERS: ADMIT Internal Medicine; ATTEND Internal Medicine
PROC: 5A1D70Z Performance of Urinary Filtration, Intermittent, Less than 6 Hours Per Day (ICD-10-PCS; principal; 2024-06-11)
DX: A41.9 Sepsis, unspecified organism (principal); I21.A1 Myocardial infarction type 2; J69.0 Pneumonitis due to inhalation of food and vomit; J96.21 Acute and chronic respiratory failure with hypoxia; N18.6 End stage renal disease; I13.2 Hypertensive heart and chronic kidney disease with heart failure and with stage 5 chronic kidney disease, or end stage renal disease; E87.1 Hypo-osmolality and hyponatremia; R65.20 Severe sepsis without septic shock; Z99.2 Dependence on renal dialysis; I25.10 Atherosclerotic heart disease of native coronary artery without angina pectoris; I50.9 Heart failure, unspecified; M89.8X9 Other specified disorders of bone, unspecified site; E11.22 Type 2 diabetes mellitus with diabetic chronic kidney disease; E78.5 Hyperlipidemia, unspecified; Z79.82 Long term (current) use of aspirin; Z79.4 Long term (current) use of insulin; Z79.899 Other long term (current) drug therapy; R74.01 Elevation of levels of liver transaminase levels; I25.2 Old myocardial infarction; D64.9 Anemia, unspecified; I48.0 Paroxysmal atrial fibrillation; J45.909 Unspecified asthma, uncomplicated; Y95 Nosocomial condition; Z86.718 Personal history of other venous thrombosis and embolism; Z95.828 Presence of other vascular implants and grafts
CPT/HCPCS: 36415; 36600; 71045-TC; 71250-TC; 74230-TC; 80048-TC; 80053-TC; 80076-TC; 80202-TC; 82803-TC; 82962-TC; 83735-TC; 83880; 84100-TC; 84484-TC; 85025-TC; 85730-TC; 87081-TC; 90935-TC; 92526; 92611-TC; 93307-TC; 94761-TC; 94799-TC; 97530-TC; A4223; G0378; J0692; J1644; J1815; J3370; J7050; J7060

== ENCOUNTER 2024-09-21 14:43 | Inpatient (IN) | payer MEDICARE, OTHER ==
[~2024-09-21] VITALS: Ht 152.4 cm; Wt 46.7 kg
[~2024-09-21 14:43] MED LIST changes: +AMIN30LI2 PO; +AMOX-430 PO; -CALC667C6 PO; +METO-295 PO; -ONDA4TAB11 PO; +SEVE800T8 PO; +ZINC57OI4 TP
[2024-09-21] MEDS ORDERED: ACETAMINOPHEN ES 500 MG TABLET ONE (14:56)
[2024-09-21] MEDS: AMLODIPINE BESYLATE 5 MG TABLET PO ONE (15:00)
[2024-09-21] MEDS: CLONIDINE HCL 0.1 MG TABLET PO ONE (15:00)
[2024-09-21] MEDS: ACETAMINOPHEN ES 500 MG TABLET PO ONE (15:05)
[2024-09-21 15:24] LABS: PLATELET COUNT (AUTO) 294 K/uL (150-450); RED BLOOD CELL COUNT(AUTO) 4.28 MIL/uL (4.0-5.2); RED CELL DISTRIBUTION WIDTH 16.7 % (11.5-15.0); WHITE BLOOD COUNT (AUTO) 3.1 K/uL (4.3-11.0)
[2024-09-21 15:37] LABS: CALCIUM, SERUM 8.7 mg/dL (8.5-10.1); CREATININE 3.3 mg/dL (0.6-1.3); SODIUM SERUM 136 mmol/L (136-145); UREA NITROGEN, BLOOD 28 mg/dL (7-18)
[2024-09-21 15:42] LABS: ASPARTATE AMINOTRANSFERASE 18 U/L (15-37); TOTAL PROTEIN, SERUM 7.5 g/dL (6.4-8.2)
[2024-09-21 16:52] LABS: BASOPHILS % (MANUAL) 0 % (0.0-2.0); EOSINOPHILS % (MANUAL) 3 % (0-4); LYMPHOCYTES % (MANUAL) 11 % (16-48); MONOCYTES % (MANUAL) 17 % (0-11.0); NEUTROPHILS % (MANUAL) 69 (42-76)
[2024-09-21 16:53] LABS: PLATELET ESTIMATE ADEQUATE
[2024-09-21 18:51] VITALS: BP 140/58; TEMP 98.8; O2SAT 100
[2024-09-21] MEDS ORDERED: ACETAMINOPHEN 325 MG TABLET PO PRN (19:00)
[2024-09-21] MEDS ORDERED: MAG HYDROX/AL HYDROX/SIMETH 30 ML UDC PO PRN (19:00)
[2024-09-21] MEDS ORDERED: Z GUARD REMEDY 4 OZ OINT TP PRN (19:00)
[2024-09-21] MEDS ORDERED: ZOLPIDEM TARTRATE 5 MG TABLET PO PRN (19:00)
[2024-09-21] MEDS ORDERED: MAGNESIUM HYDROXIDE 30 ML UDC PO PRN (19:00)
[2024-09-21] MEDS ORDERED: ONDANSETRON HCL/PF 4 MG/2 ML VIAL IVP PRN (19:00)
[2024-09-21] MEDS ORDERED: DOSING PER PHARMACY-VANCOMYCIN IV XX PRN (19:00)
[2024-09-21] MEDS: VANCOMYCIN HCL 1.25 GM in IV D5W 250 ML IV ONE (19:57)
[2024-09-21 20:00] VITALS: BP 137/64; TEMP 98.2; O2SAT 99
[2024-09-21] MEDS: HEPARIN SODIUM, PORCINE 5000 UNITS/1 ML VIAL SQ SCH (21:16)
[2024-09-21] MEDS: PIPERACILLIN /TAZOBACTAM 2.25 G in IV D5W 50 ML IV SCH (22:14)
[2024-09-22] MEDS ORDERED: DEXTROSE 50%-WATER 50 ML DISP.SYRIN IV PRN (03:00)
[2024-09-22 05:00] VITALS: BP 136/77; TEMP 98.2; O2SAT 99
[2024-09-22 05:09] LABS: ABG BASE EXCESS 4.5 mmol/L (-2.0-3.0); ABG OXYGEN SATURATION 96.2 % (94.0-98.0); ABG PCO2 59.0 mmHg (32.0-45.0); ABG PH 7.344 (7.350-7.450); ABG PO2 93.6 mmHg (83.0-108.0); ABG TOTAL HEMOGLOBIN 10.9 G/dL (12.0-16.0); FLOW, BLOOD GAS 2.50 L/min (0.00-30.00); FRACTIONATED INSPIRED OXYGEN 30.0 %; SITE, ABG RIGHT RADIAL
[2024-09-22] MEDS: BLOOD SUGAR DIAGNOSTIC 1 EACH STRIP IN SCH (06:35)
[2024-09-22] MEDS: INSULIN REGULAR, HUMAN 100 UNIT/ML 3 ML VIAL SQ PRN (06:35)
[2024-09-22 07:17] LABS: PLATELET COUNT (AUTO) 254 K/uL (150-450); RED BLOOD CELL COUNT(AUTO) 3.93 MIL/uL (4.0-5.2); RED CELL DISTRIBUTION WIDTH 16.8 % (11.5-15.0); WHITE BLOOD COUNT (AUTO) 4.2 K/uL (4.3-11.0)
[2024-09-22 07:23] LABS: CALCIUM, SERUM 8.7 mg/dL (8.5-10.1); CREATININE 4.4 mg/dL (0.6-1.3); PHOSPHORUS 5.4 mg/dL (2.5-4.9); SODIUM SERUM 136.0 mmol/L (136-145); UREA NITROGEN, BLOOD 38.0 mg/dL (7-18)
[2024-09-22 08:00] VITALS: BP 143/65; TEMP 98.1; O2SAT 98
[2024-09-22] MEDS: dexaMETHasone SOD PHOSPHATE 10 MG/ML VIAL IV SCH (08:23)
[2024-09-22 08:56] LABS: EOSINOPHILS % (MANUAL) 5 % (0-4); LYMPHOCYTES % (MANUAL) 18 % (16-48); MONOCYTES % (MANUAL) 19 % (0-11.0); NEUTROPHILS % (MANUAL) 58 (42-76); PLATELET ESTIMATE ADEQUATE
[2024-09-22] MEDS: IPRATROPIUM/ALBUTEROL INHALER IH SCH (11:44)
[2024-09-22 12:00] VITALS: BP 153/59; TEMP 98.6; O2SAT 99
[2024-09-22 16:00] VITALS: BP 178/72; TEMP 98.2; O2SAT 96
[2024-09-22] MEDS: CLONIDINE HCL 0.1 MG TABLET PO PRN (16:34)
[2024-09-22] MEDS: REMDESIVIR (CHARGED) 100 MG in IV NS 0.9% 80 ML IV SCH (16:56)
[2024-09-22 20:05] VITALS: BP 122/62; TEMP 98.2; O2SAT 99
[2024-09-23] VITALS: BP 170/71; TEMP 98; O2SAT 100
[2024-09-23 04:00] VITALS: BP 156/59; TEMP 98; O2SAT 99
[2024-09-23 07:30] LABS: PLATELET COUNT (AUTO) 294 K/uL (150-450); RED BLOOD CELL COUNT(AUTO) 4.38 MIL/uL (4.0-5.2); RED CELL DISTRIBUTION WIDTH 16.5 % (11.5-15.0)
[2024-09-23 07:44] LABS: WHITE BLOOD COUNT (AUTO) 1.8 K/uL (4.3-11.0)
[2024-09-23 07:55] LABS: INR 1.05 (0.91-1.10)
[2024-09-23 08:00] VITALS: BP 139/69; TEMP 98.6; O2SAT 97
[2024-09-23 08:26] LABS: ASPARTATE AMINOTRANSFERASE 30.0 U/L (15-37); TOTAL PROTEIN, SERUM 7.5 g/dL (6.4-8.2)
[2024-09-23 08:41] LABS: ASPARTATE AMINOTRANSFERASE 16.0 U/L (15-37); CALCIUM, SERUM 8.3 mg/dL (8.5-10.1); CREATININE 4.0 mg/dL (0.6-1.3); PHOSPHORUS 5.4 mg/dL (2.5-4.9); SODIUM SERUM 138.0 mmol/L (136-145); TOTAL PROTEIN, SERUM 7.4 g/dL (6.4-8.2); UREA NITROGEN, BLOOD 40.0 mg/dL (7-18)
[2024-09-23 11:25] LABS: LYMPHOCYTES % (MANUAL) 27 % (16-48); MONOCYTES % (MANUAL) 13 % (0-11.0); NEUTROPHILS % (MANUAL) 60 (42-76); PLATELET ESTIMATE ADEQUATE
[2024-09-23] MEDS ORDERED: DEXTROSE 50%-WATER 50 ML DISP.SYRIN IV PRN (11:30)
[2024-09-23 12:00] VITALS: BP 167/68; TEMP 98.2; O2SAT 99
[2024-09-23 16:00] VITALS: BP 160/65; TEMP 98; O2SAT 99
[2024-09-23] MEDS: VANCOMYCIN POST DIALYSIS 500MG IV PRN (16:36)
[2024-09-23] MEDS: BLOOD SUGAR DIAGNOSTIC 1 EACH STRIP VI SCH (17:04)
[2024-09-23] MEDS: INSULIN REGULAR, HUMAN 100 UNIT/ML 3 ML VIAL SQ PRN (17:05)
[2024-09-23 20:00] VITALS: BP 171/124; TEMP 97.9; O2SAT 97
[2024-09-23] MEDS: *INSULIN REGULAR(HUMULIN R)HUM 100 UNIT/ML VIAL SQ PRN (23:21)
[2024-09-24] VITALS (7 sets, daily range): BP systolic 160–185; BP diastolic 65–90; TEMP 97.5–98.2; O2SAT 99–100
[2024-09-24 08:25] LABS: PLATELET COUNT (AUTO) 313 K/uL (150-450); RED BLOOD CELL COUNT(AUTO) 4.39 MIL/uL (4.0-5.2); RED CELL DISTRIBUTION WIDTH 16.6 % (11.5-15.0); WHITE BLOOD COUNT (AUTO) 3.4 K/uL (4.3-11.0)
[2024-09-24 08:27] LABS: INR 1.08 (0.91-1.10)
[2024-09-24 09:13] LABS: ASPARTATE AMINOTRANSFERASE 18.0 U/L (15-37); CALCIUM, SERUM 8.2 mg/dL (8.5-10.1); CREATININE 3.2 mg/dL (0.6-1.3); SODIUM SERUM 137.0 mmol/L (136-145); TOTAL PROTEIN, SERUM 6.7 g/dL (6.4-8.2); UREA NITROGEN, BLOOD 38.0 mg/dL (7-18)
[2024-09-24 09:40] LABS: EOSINOPHILS % (MANUAL) 1 % (0-4); LYMPHOCYTES % (MANUAL) 40 % (16-48); MONOCYTES % (MANUAL) 13 % (0-11.0); NEUTROPHILS % (MANUAL) 46 (42-76); PLATELET ESTIMATE ADEQUATE
[2024-09-24] MEDS: AMLODIPINE BESYLATE 5 MG TABLET PO SCH (16:23)
[2024-09-24] MEDS: CARVEDILOL 6.25 MG TABLET PO SCH (16:23)
[2024-09-25] VITALS (8 sets, daily range): BP systolic 125–175; BP diastolic 59–90; TEMP 97.5–98.5; O2SAT 95–100
[2024-09-25 07:49] LABS: PLATELET COUNT (AUTO) 337 K/uL (150-450); RED BLOOD CELL COUNT(AUTO) 4.48 MIL/uL (4.0-5.2); RED CELL DISTRIBUTION WIDTH 17.2 % (11.5-15.0); WHITE BLOOD COUNT (AUTO) 4.9 K/uL (4.3-11.0)
[2024-09-25 08:00] LABS: INR 1.15 (0.91-1.10)
[2024-09-25 08:26] LABS: ASPARTATE AMINOTRANSFERASE 17.0 U/L (15-37); CALCIUM, SERUM 8.4 mg/dL (8.5-10.1); CREATININE 4.7 mg/dL (0.6-1.3); SODIUM SERUM 131.0 mmol/L (136-145); TOTAL PROTEIN, SERUM 6.5 g/dL (6.4-8.2); UREA NITROGEN, BLOOD 67.0 mg/dL (7-18)
[2024-09-25] MEDS: hydrALAZINE HCL IV 20 MG VIAL IV PRN (18:05)
[2024-09-28 02:07] LABS: HEPATITIS B SURFACE AB (QUAL) Non Reactive (.)
== END 2024-09-25 21:01 | DRG 871 ==
LOC: ER 14:50 → MEDSG1 17:21 → ICUOV 09-22 07:15 → TELE-TD 09-22 08:34 → TELE1 09-23 09:21 → MEDSG1 09-25 14:25
PROVIDERS: ADMIT Registered Nurse Psychiatric/Mental Health
PROC: XW033E5 Introduction of Remdesivir Anti-infective into Peripheral Vein, Percutaneous Approach, New Technology Group 5 (ICD-10-PCS; principal; 2024-09-22)
PROC: 5A1D70Z Performance of Urinary Filtration, Intermittent, Less than 6 Hours Per Day (ICD-10-PCS; 2024-09-23)
DX: A41.89 Other specified sepsis (principal); J12.82 Pneumonia due to coronavirus disease 2019; N18.6 End stage renal disease; U07.1 COVID-19; J96.21 Acute and chronic respiratory failure with hypoxia; J96.22 Acute and chronic respiratory failure with hypercapnia; I13.2 Hypertensive heart and chronic kidney disease with heart failure and with stage 5 chronic kidney disease, or end stage renal disease; I50.22 Chronic systolic (congestive) heart failure; E87.3 Alkalosis; J81.1 Chronic pulmonary edema; I48.20 Chronic atrial fibrillation, unspecified; I25.10 Atherosclerotic heart disease of native coronary artery without angina pectoris; I25.2 Old myocardial infarction; E11.22 Type 2 diabetes mellitus with diabetic chronic kidney disease; Z99.2 Dependence on renal dialysis; E78.5 Hyperlipidemia, unspecified; Z79.82 Long term (current) use of aspirin; Z79.899 Other long term (current) drug therapy; E88.09 Other disorders of plasma-protein metabolism, not elsewhere classified; H91.93 Unspecified hearing loss, bilateral; Z95.828 Presence of other vascular implants and grafts; Z79.4 Long term (current) use of insulin; J45.909 Unspecified asthma, uncomplicated; D64.9 Anemia, unspecified; Z86.718 Personal history of other venous thrombosis and embolism; Z98.61 Coronary angioplasty status
CPT/HCPCS: 36415; 36600; 71045-TC; 80048-TC; 80053-TC; 80076-TC; 80202-TC; 82962-TC; 83735-TC; 83880; 84100-TC; 84484-TC; 85025-TC; 85027-TC; 85378-TC; 85610-TC; 85730-TC; 86140-TC; 86706; 87040-TC; 87081-TC; 87340; 90935-TC; A6213; G0378; J0360; J1100; J1644; J1815; J2048; J2543; J3373; J7030; J7050; J7060

== ENCOUNTER 2025-02-08 07:02 | Inpatient (IN) | payer MEDICARE, OTHER ==
[~2025-02-08] VITALS: Ht 162.6 cm; Wt 36.7 kg
[~2025-02-08 07:02] MED LIST changes: -AMIN30LI2 PO; -AMOX-430 PO; -VITS42.53 TP
[2025-02-08] MEDS ORDERED: CEFTRIAXONE 1GM BAG (ER ONLY) 50 ML IV ONE (07:37)
[2025-02-08] MEDS: IV NS 0.9% 1,000 ML BAG IV ONE (07:41)
[2025-02-08] MEDS: CEFTRIAXONE 1 G in IV D5W 50 ML IV ONE (07:42)
[2025-02-08 07:45] LABS: PLATELET COUNT (AUTO) 126 K/uL (150-450); RED BLOOD CELL COUNT(AUTO) 3.25 MIL/uL (4.0-5.2); RED CELL DISTRIBUTION WIDTH 16.2 % (11.5-15.0); WHITE BLOOD COUNT (AUTO) 5.9 K/uL (4.3-11.0)
[2025-02-08 07:56] LABS: CALCIUM, SERUM 8.7 mg/dL (8.5-10.1); CREATININE 4.7 mg/dL (0.6-1.3); SODIUM SERUM 136 mmol/L (136-145); UREA NITROGEN, BLOOD 45 mg/dL (7-18)
[2025-02-08 07:59] LABS: INR 1.02 (0.91-1.10)
[2025-02-08 08:02] LABS: ASPARTATE AMINOTRANSFERASE 18 U/L (15-37); TOTAL PROTEIN, SERUM 7.1 g/dL (6.4-8.2)
[2025-02-08 08:16] LABS: LACTIC ACID 0.4 mmol/L (0.4-2.0)
[2025-02-08] MEDS ORDERED: AMIN30LI66 PO (08:32)
[2025-02-08 09:00] VITALS: BP 100/48; TEMP 97.9; O2SAT 98
[2025-02-08] MEDS ORDERED: ZOLPIDEM TARTRATE 5 MG TABLET PO PRN (09:30)
[2025-02-08] MEDS ORDERED: MAGNESIUM HYDROXIDE 30 ML UDC PO PRN (09:30)
[2025-02-08] MEDS ORDERED: MAG HYDROX/AL HYDROX/SIMETH 30 ML UDC PO PRN (09:30)
[2025-02-08 09:32] LABS: APPEARANCE,URINE TURBID (CLEAR); BLOOD, URINE 2+ Ery/uL (NEGATIVE); LEUKOCYTE ESTERASE ,URINE 3+ (NEGATIVE); NITRITE, URINE POSITIVE (NEGATIVE); UGLUCOSE NEGATIVE (NEGATIVE)
[2025-02-08] MEDS: ENOXAPARIN SODIUM 30 MG/0.3 ML DISP.SYRIN SQ SCH (09:53)
[2025-02-08 09:54] LABS: ADD URINE CULTURE YES
[2025-02-08 11:30] VITALS: BP 99/40; TEMP 97.9; O2SAT 100
[2025-02-08 13:21] LABS: IRON, SERUM 59.0 ug/dl (50-175)
[2025-02-08 14:04] LABS: LDL 29.0 mg/dL (0-99)
[2025-02-08 16:00] VITALS: BP 110/48; TEMP 97.9; O2SAT 100
[2025-02-08] MEDS: BLOOD SUGAR DIAGNOSTIC 1 EACH STRIP VI SCH (17:12)
[2025-02-08 20:00] VITALS: BP 118/50; TEMP 97.3; O2SAT 97
[2025-02-09] VITALS (32 sets, daily range): BP systolic 92–166; BP diastolic 41–63; TEMP 97.5–98.4; O2SAT 92–100
[2025-02-09] MEDS: DEXTROSE 50%-WATER 50 ML DISP.SYRIN IV PRN (04:28)
[2025-02-09] MEDS: CEFTRIAXONE 1 G in IV D5W 50 ML IV SCH (06:32)
[2025-02-09 06:39] LABS: PLATELET COUNT (AUTO) 129 K/uL (150-450); RED BLOOD CELL COUNT(AUTO) 3.21 MIL/uL (4.0-5.2); RED CELL DISTRIBUTION WIDTH 16.1 % (11.5-15.0); WHITE BLOOD COUNT (AUTO) 7.4 K/uL (4.3-11.0)
[2025-02-09 06:59] LABS: CALCIUM, SERUM 8.7 mg/dL (8.5-10.1); CREATININE 5.9 mg/dL (0.6-1.3); PHOSPHORUS 5.0 mg/dL (2.5-4.9); SODIUM SERUM 137.0 mmol/L (136-145); UREA NITROGEN, BLOOD 61.0 mg/dL (7-18)
[2025-02-09] MEDS: PANTOPRAZOLE 40 MG TABLET.DR PO SCH (08:33)
[2025-02-09] MEDS: ACETAMINOPHEN 325 MG TABLET PO PRN (08:58)
[2025-02-09 10:03] LABS: ABG BASE EXCESS -5.4 mmol/L (-2.0-3.0); ABG OXYGEN SATURATION 98.1 % (94.0-98.0); ABG PCO2 69.8 mmHg (32.0-45.0); ABG PH 7.151 (7.350-7.450); ABG PO2 127.8 mmHg (83.0-108.0); ABG TOTAL HEMOGLOBIN 9.3 G/dL (12.0-16.0); FLOW, BLOOD GAS 2.00 L/min (0.00-30.00); FRACTIONATED INSPIRED OXYGEN 28.0 %; SITE, ABG LEFT RADIAL
[2025-02-09 13:28] LABS: ABG BASE EXCESS -4.4 mmol/L (-2.0-3.0); ABG OXYGEN SATURATION 94.2 % (94.0-98.0); ABG PCO2 70.4 mmHg (32.0-45.0); ABG PH 7.164 (7.350-7.450); ABG PO2 78.4 mmHg (83.0-108.0); ABG TOTAL HEMOGLOBIN 9.4 G/dL (12.0-16.0); FRACTIONATED INSPIRED OXYGEN 28.0 %; SET RATE, BG 20.0; SITE, ABG LEFT RADIAL
[2025-02-09 14:40] LABS: ABG BASE EXCESS -5.3 mmol/L (-2.0-3.0); ABG OXYGEN SATURATION 95.9 % (94.0-98.0); ABG PCO2 60.1 mmHg (32.0-45.0); ABG PH 7.199 (7.350-7.450); ABG PO2 89.3 mmHg (83.0-108.0); ABG TOTAL HEMOGLOBIN 9.3 G/dL (12.0-16.0); FRACTIONATED INSPIRED OXYGEN 28.0 %; SET RATE, BG 20.0
[2025-02-09 18:49] LABS: ABG BASE EXCESS 0.8 mmol/L (-2.0-3.0); ABG OXYGEN SATURATION 95.7 % (94.0-98.0); ABG PCO2 58.4 mmHg (32.0-45.0); ABG PH 7.298 (7.350-7.450); ABG PO2 82.5 mmHg (83.0-108.0); ABG TOTAL HEMOGLOBIN 9.7 G/dL (12.0-16.0); FRACTIONATED INSPIRED OXYGEN 28.0 %; SET RATE, BG 20.0; SITE, ABG LEFT BRACHIAL
[2025-02-09] MEDS ORDERED: VASOPRESSIN INJ 40 UNIT in IV NS 0.9% 38 ML IV PRN (19:30)
[2025-02-09] MEDS: *INSULIN REGULAR(HUMULIN R)HUM 100 UNIT/ML VIAL SQ PRN (22:24)
[2025-02-10] VITALS (39 sets, daily range): BP systolic 104–171; BP diastolic 51–132; TEMP 97.8; O2SAT 94–100
[2025-02-10 04:30] LABS: PLATELET COUNT (AUTO) 147 K/uL (150-450); RED BLOOD CELL COUNT(AUTO) 3.18 MIL/uL (4.0-5.2); RED CELL DISTRIBUTION WIDTH 16.2 % (11.5-15.0); WHITE BLOOD COUNT (AUTO) 5.9 K/uL (4.3-11.0)
[2025-02-10 04:49] LABS: CALCIUM, SERUM 8.6 mg/dL (8.5-10.1); CREATININE 2.7 mg/dL (0.6-1.3); PHOSPHORUS 2.0 mg/dL (2.5-4.9); SODIUM SERUM 143.0 mmol/L (136-145); UREA NITROGEN, BLOOD 21.0 mg/dL (7-18)
[2025-02-10 08:43] LABS: ABG BASE EXCESS 1.4 mmol/L (-2.0-3.0); ABG OXYGEN SATURATION 95.5 % (94.0-98.0); ABG PCO2 50.0 mmHg (32.0-45.0); ABG PH 7.357 (7.350-7.450); ABG PO2 77.0 mmHg (83.0-108.0); ABG TOTAL HEMOGLOBIN 10.2 G/dL (12.0-16.0); FLOW, BLOOD GAS 2.00 L/min (0.00-30.00); FRACTIONATED INSPIRED OXYGEN 28.0 %; SITE, ABG LEFT BRACHIAL
[2025-02-10] MEDS: CEFTRIAXONE 1 G in IV D5W 50 ML IV SCH (09:04)
[2025-02-10] MEDS: INSULIN REGULAR, HUMAN 100 UNIT/ML 3 ML VIAL SQ PRN (11:58)
[2025-02-11] VITALS (46 sets, daily range): BP systolic 71–169; BP diastolic 42–117; O2SAT 95–100
[2025-02-11 04:46] LABS: PLATELET COUNT (AUTO) 188 K/uL (150-450); RED BLOOD CELL COUNT(AUTO) 3.43 MIL/uL (4.0-5.2); RED CELL DISTRIBUTION WIDTH 16.3 % (11.5-15.0); WHITE BLOOD COUNT (AUTO) 5.3 K/uL (4.3-11.0)
[2025-02-11 05:13] LABS: ASPARTATE AMINOTRANSFERASE 19.0 U/L (15-37); CALCIUM, SERUM 9.1 mg/dL (8.5-10.1); CREATININE 2.2 mg/dL (0.6-1.3); PHOSPHORUS 2.1 mg/dL (2.5-4.9); SODIUM SERUM 143.0 mmol/L (136-145); TOTAL PROTEIN, SERUM 7.5 g/dL (6.4-8.2); UREA NITROGEN, BLOOD 21.0 mg/dL (7-18)
[2025-02-11] MEDS: ONDANSETRON HCL/PF 4 MG/2 ML VIAL IVP PRN (07:28)
[2025-02-11 07:58] LABS: ABG BASE EXCESS -1.3 mmol/L (-2.0-3.0); ABG OXYGEN SATURATION 98.3 % (94.0-98.0); ABG PCO2 59.9 mmHg (32.0-45.0); ABG PH 7.263 (7.350-7.450); ABG PO2 130.7 mmHg (83.0-108.0); ABG TOTAL HEMOGLOBIN 10.6 G/dL (12.0-16.0); FLOW, BLOOD GAS 2.00 L/min (0.00-30.00); SITE, ABG LEFT RADIAL
[2025-02-11 14:57] LABS: ABG BASE EXCESS -2.5 mmol/L (-2.0-3.0); ABG OXYGEN SATURATION 97.4 % (94.0-98.0); ABG PCO2 64.4 mmHg (32.0-45.0); ABG PH 7.223 (7.350-7.450); ABG PO2 106.6 mmHg (83.0-108.0); ABG TOTAL HEMOGLOBIN 10.8 G/dL (12.0-16.0); FLOW, BLOOD GAS 2.00 L/min (0.00-30.00); FRACTIONATED INSPIRED OXYGEN 28.0 %; SITE, ABG LEFT RADIAL
[2025-02-11] MEDS ORDERED: IV D5/0.45 NACL 1,000 ML IV PRN (15:30)
[2025-02-11] MEDS: K PHOS NEUTRAL 250 MG TABLET PO ONE (15:55)
[2025-02-11] MEDS: IV D5/0.45 NACL 1,000 ML IV PRN (15:57)
[2025-02-11] MEDS: AMIODARONE 150 MG in IV D5W 100 ML IV ONE (18:17)
[2025-02-11] MEDS: AMIODARONE 450 MG in IV D5W 241 ML IV PRN (18:36)
[2025-02-12] VITALS (59 sets, daily range): BP systolic 85–149; BP diastolic 40–60; TEMP 97.5–98; O2SAT 79–100
[2025-02-12 04:33] LABS: PLATELET COUNT (AUTO) 167 K/uL (150-450); RED BLOOD CELL COUNT(AUTO) 3.01 MIL/uL (4.0-5.2); RED CELL DISTRIBUTION WIDTH 16.6 % (11.5-15.0); WHITE BLOOD COUNT (AUTO) 7.1 K/uL (4.3-11.0)
[2025-02-12 04:54] LABS: CALCIUM, SERUM 8.3 mg/dL (8.5-10.1); CREATININE 1.6 mg/dL (0.6-1.3); PHOSPHORUS 2.8 mg/dL (2.5-4.9); SODIUM SERUM 142.0 mmol/L (136-145); UREA NITROGEN, BLOOD 11.0 mg/dL (7-18)
[2025-02-12] MEDS: AMIODARONE HCL 200 MG TABLET PO SCH (09:00)
[2025-02-12 09:44] LABS: ABG BASE EXCESS -0.2 mmol/L (-2.0-3.0); ABG OXYGEN SATURATION 96.6 % (94.0-98.0); ABG PCO2 63.4 mmHg (32.0-45.0); ABG PH 7.256 (7.350-7.450); ABG PO2 91.2 mmHg (83.0-108.0); ABG TOTAL HEMOGLOBIN 9.4 G/dL (12.0-16.0); FLOW, BLOOD GAS 0.50 L/min (0.00-30.00); FRACTIONATED INSPIRED OXYGEN 22.0 %; SITE, ABG RIGHT BRACHIAL
[2025-02-12] MEDS: IV NS 0.9% 250 ML IV PRN (12:47)
[2025-02-12 13:27] LABS: RHEUMATOID FACTOR SCREEN NEGATIVE (NEGATIVE)
[2025-02-12] MEDS: DOXYCYCLINE 100 MG in IV D5W 100 ML IV SCH (20:00)
[2025-02-13] VITALS (41 sets, daily range): BP systolic 90–161; BP diastolic 45–100; TEMP 97.4–98; O2SAT 89–100
[2025-02-13 04:15] LABS: PLATELET COUNT (AUTO) 197 K/uL (150-450); RED BLOOD CELL COUNT(AUTO) 3.30 MIL/uL (4.0-5.2); RED CELL DISTRIBUTION WIDTH 16.6 % (11.5-15.0); WHITE BLOOD COUNT (AUTO) 5.1 K/uL (4.3-11.0)
[2025-02-13 04:27] LABS: CALCIUM, SERUM 8.7 mg/dL (8.5-10.1); CREATININE 1.6 mg/dL (0.6-1.3); SODIUM SERUM 143.0 mmol/L (136-145); UREA NITROGEN, BLOOD 16.0 mg/dL (7-18)
[2025-02-13 09:16] LABS: ABG BASE EXCESS -4.3 mmol/L (-2.0-3.0); ABG OXYGEN SATURATION 95.4 % (94.0-98.0); ABG PCO2 57.5 mmHg (32.0-45.0); ABG PH 7.232 (7.350-7.450); ABG PO2 80.1 mmHg (83.0-108.0); ABG TOTAL HEMOGLOBIN 10.6 G/dL (12.0-16.0); FLOW, BLOOD GAS 0.50 L/min (0.00-30.00); FRACTIONATED INSPIRED OXYGEN 22.0 %; SITE, ABG RIGHT BRACHIAL
[2025-02-13 17:47] LABS: ABG BASE EXCESS -0.4 mmol/L (-2.0-3.0); ABG OXYGEN SATURATION 93.9 % (94.0-98.0); ABG PCO2 58.2 mmHg (32.0-45.0); ABG PH 7.283 (7.350-7.450); ABG PO2 71.8 mmHg (83.0-108.0); ABG TOTAL HEMOGLOBIN 10.4 G/dL (12.0-16.0); FLOW, BLOOD GAS 0.50 L/min (0.00-30.00); FRACTIONATED INSPIRED OXYGEN 22.0 %
[2025-02-14] VITALS (24 sets, daily range): BP systolic 115–160; BP diastolic 39–90; TEMP 97.8–98.2; O2SAT 96–100
[2025-02-14 04:17] LABS: PLATELET COUNT (AUTO) 221 K/uL (150-450); RED BLOOD CELL COUNT(AUTO) 3.13 MIL/uL (4.0-5.2); RED CELL DISTRIBUTION WIDTH 16.4 % (11.5-15.0); WHITE BLOOD COUNT (AUTO) 3.1 K/uL (4.3-11.0)
[2025-02-14 04:29] LABS: CALCIUM, SERUM 8.6 mg/dL (8.5-10.1); CREATININE 1.6 mg/dL (0.6-1.3); SODIUM SERUM 139.0 mmol/L (136-145); UREA NITROGEN, BLOOD 24.0 mg/dL (7-18)
[2025-02-14 07:34] LABS: ABG BASE EXCESS 0.4 mmol/L (-2.0-3.0); ABG OXYGEN SATURATION 97.0 % (94.0-98.0); ABG PCO2 62.4 mmHg (32.0-45.0); ABG PH 7.272 (7.350-7.450); ABG PO2 94.3 mmHg (83.0-108.0); ABG TOTAL HEMOGLOBIN 10.4 G/dL (12.0-16.0); FLOW, BLOOD GAS 0.50 L/min (0.00-30.00); FRACTIONATED INSPIRED OXYGEN 23.0 %; SITE, ABG RIGHT RADIAL
[2025-02-14] MEDS: DOXYCYCLINE HYCLATE (100 MG) 100 MG TABLET PO SCH (08:48)
[2025-02-14 13:40] LABS: ABG BASE EXCESS -1.7 mmol/L (-2.0-3.0); ABG OXYGEN SATURATION 96.8 % (94.0-98.0); ABG PCO2 59.3 mmHg (32.0-45.0); ABG PH 7.260 (7.350-7.450); ABG PO2 96.7 mmHg (83.0-108.0); ABG TOTAL HEMOGLOBIN 10.5 G/dL (12.0-16.0); FLOW, BLOOD GAS 0.50 L/min (0.00-30.00); FRACTIONATED INSPIRED OXYGEN 23.0 %; SITE, ABG RIGHT RADIAL
[2025-02-15] VITALS (33 sets, daily range): BP systolic 106–166; BP diastolic 57–118; TEMP 97.5–98; O2SAT 78–100
[2025-02-15 03:46] LABS: PLATELET COUNT (AUTO) 209 K/uL (150-450); RED BLOOD CELL COUNT(AUTO) 3.20 MIL/uL (4.0-5.2); RED CELL DISTRIBUTION WIDTH 15.9 % (11.5-15.0); WHITE BLOOD COUNT (AUTO) 2.6 K/uL (4.3-11.0)
[2025-02-15 03:48] LABS: CALCIUM, SERUM 8.2 mg/dL (8.5-10.1); CREATININE 3.0 mg/dL (0.6-1.3); SODIUM SERUM 133.0 mmol/L (136-145); UREA NITROGEN, BLOOD 61.0 mg/dL (7-18)
[2025-02-15 09:15] LABS: ABG BASE EXCESS -5.7 mmol/L (-2.0-3.0); ABG OXYGEN SATURATION 97.5 % (94.0-98.0); ABG PCO2 55.8 mmHg (32.0-45.0); ABG PH 7.218 (7.350-7.450); ABG PO2 116.9 mmHg (83.0-108.0); ABG TOTAL HEMOGLOBIN 10.5 G/dL (12.0-16.0); FLOW, BLOOD GAS 1.00 L/min (0.00-30.00); FRACTIONATED INSPIRED OXYGEN 24.0 %; SITE, ABG RIGHT RADIAL
[2025-02-15] MEDS: CITRIC ACID/SODIUM CITRATE (BICITRA)15 ML UDC PO SCH (10:41)
[2025-02-15 12:07] LABS: *ANA ANTI-CENTROMERE B AB <0.2 AI (0.0-0.9); *ANA ANTI-DNA(DS) AB, QN <1 IU/mL (0-9); *ANA ANTI-JO-1 <0.2 AI (0.0-0.9); *ANA ANTICHROMATIN ANTIBODY <0.2 AI (0.0-0.9); *ANA RNP ANTIBODIES 0.2 AI (0.0-0.9); *ANA SJOGREN'S ANTI-SS-A <0.2 AI (0.0-0.9); *ANA SJOGREN'S ANTI-SS-B <0.2 AI (0.0-0.9); *ANAANTI-SCLERODERMA-70 AB <0.2 AI (0.0-0.9); *ANASMITH AB <0.2 AI (0.0-0.9)
[2025-02-16] VITALS (22 sets, daily range): BP systolic 120–163; BP diastolic 50–112; TEMP 96.3–98.2; O2SAT 87–100
[2025-02-16 04:26] LABS: CALCIUM, SERUM 8.4 mg/dL (8.5-10.1); CREATININE 2.1 mg/dL (0.6-1.3); PHOSPHORUS 2.7 mg/dL (2.5-4.9); SODIUM SERUM 137.0 mmol/L (136-145); UREA NITROGEN, BLOOD 43.0 mg/dL (7-18)
[2025-02-16 04:29] LABS: PLATELET COUNT (AUTO) 199 K/uL (150-450); RED BLOOD CELL COUNT(AUTO) 3.11 MIL/uL (4.0-5.2); RED CELL DISTRIBUTION WIDTH 15.9 % (11.5-15.0)
[2025-02-16 04:36] LABS: WHITE BLOOD COUNT (AUTO) 1.8 K/uL (4.3-11.0)
[2025-02-16 05:11] LABS: LYMPHOCYTES % (MANUAL) 11 % (16-48); MONOCYTES % (MANUAL) 3 % (0-11.0); NEUTROPHILS % (MANUAL) 86 (42-76)
[2025-02-16 05:12] LABS: PLATELET ESTIMATE ADEQUATE
[2025-02-16 11:03] LABS: ABG BASE EXCESS -3.4 mmol/L (-2.0-3.0); ABG OXYGEN SATURATION 95.6 % (94.0-98.0); ABG PCO2 47.9 mmHg (32.0-45.0); ABG PH 7.300 (7.350-7.450); ABG PO2 83.7 mmHg (83.0-108.0); ABG TOTAL HEMOGLOBIN 10.5 G/dL (12.0-16.0); FLOW, BLOOD GAS 0.50 L/min (0.00-30.00); FRACTIONATED INSPIRED OXYGEN 22.0 %; SITE, ABG RIGHT BRACHIAL
[2025-02-16] MEDS: Z GUARD REMEDY 4 OZ OINT TP PRN (16:52)
[2025-02-16] MEDS: NEPRO VAN 237 ML CAN PO PRN (17:03)
[2025-02-16] MEDS: INSULIN GLARGINE, 100 UNIT/ML CARTRIDGE SQ SCH (22:13)
[2025-02-17 04:48] VITALS: BP 168/81; TEMP 98.1; O2SAT 100
[2025-02-17 06:25] LABS: PLATELET COUNT (AUTO) 196 K/uL (150-450); RED BLOOD CELL COUNT(AUTO) 3.16 MIL/uL (4.0-5.2); RED CELL DISTRIBUTION WIDTH 16.0 % (11.5-15.0); WHITE BLOOD COUNT (AUTO) 3.0 K/uL (4.3-11.0)
[2025-02-17 06:50] LABS: CALCIUM, SERUM 8.7 mg/dL (8.5-10.1); CREATININE 3.2 mg/dL (0.6-1.3); PHOSPHORUS 3.9 mg/dL (2.5-4.9); SODIUM SERUM 134.0 mmol/L (136-145)
[2025-02-17 07:06] LABS: UREA NITROGEN, BLOOD 87.0 mg/dL (7-18)
[2025-02-17 08:00] VITALS: BP 166/108; TEMP 97.5; O2SAT 99
[2025-02-17 11:30] VITALS: BP 145/66; TEMP 97.3; O2SAT 100
[2025-02-17 15:51] VITALS: BP 152/62; TEMP 98.3; O2SAT 100
[2025-02-17] MEDS: AMLODIPINE BESYLATE 5 MG TABLET PO SCH (15:51)
[2025-02-17 16:00] VITALS: BP 152/62; TEMP 97.3; O2SAT 100
[2025-02-17] MEDS: CARVEDILOL 6.25 MG TABLET PO SCH (16:50)
[2025-02-17 20:00] VITALS: BP 160/61; TEMP 97.5; O2SAT 92
[2025-02-18] VITALS: BP_SYST 119; BP_SYST 151; BP_DIAS 60; BP_DIAS 65; TEMP 98.1; O2SAT 100; O2SAT 95
[2025-02-18 04:00] VITALS: BP 153/79; TEMP 98.1; O2SAT 95
[2025-02-18 06:33] LABS: PLATELET COUNT (AUTO) 192 K/uL (150-450); RED BLOOD CELL COUNT(AUTO) 3.19 MIL/uL (4.0-5.2); RED CELL DISTRIBUTION WIDTH 16.1 % (11.5-15.0); WHITE BLOOD COUNT (AUTO) 3.3 K/uL (4.3-11.0)
[2025-02-18 06:53] LABS: CALCIUM, SERUM 8.9 mg/dL (8.5-10.1); CREATININE 2.3 mg/dL (0.6-1.3); PHOSPHORUS 3.0 mg/dL (2.5-4.9); SODIUM SERUM 136.0 mmol/L (136-145); UREA NITROGEN, BLOOD 58.0 mg/dL (7-18)
[2025-02-18 08:00] VITALS: BP 155/59; TEMP 97.3; O2SAT 97
[2025-02-18 09:41] LABS: ABG BASE EXCESS -0.4 mmol/L (-2.0-3.0); ABG OXYGEN SATURATION 88.3 % (94.0-98.0); ABG PCO2 50.1 mmHg (32.0-45.0); ABG PH 7.330 (7.350-7.450); ABG PO2 58.5 mmHg (83.0-108.0); ABG TOTAL HEMOGLOBIN 9.7 G/dL (12.0-16.0); FRACTIONATED INSPIRED OXYGEN 21.0 %; SITE, ABG LEFT BRACHIAL
[2025-02-18] MEDS ORDERED: DOXY100T2 PO (10:18)
[2025-02-18] MEDS ORDERED: PRED20TA PO (10:18)
[2025-02-18 13:25] VITALS: BP 131/55
== END 2025-02-18 14:00 | DRG 280 ==
LOC: ER 07:05 → MED 08:06 → TELE 09:47 → ICU 02-09 12:03 → TELE 02-16 18:52
PROVIDERS: ADMIT Student in an Organized Health Care Education/Training Program; ATTEND Student in an Organized Health Care Education/Training Program
PROC: 5A1D70Z Performance of Urinary Filtration, Intermittent, Less than 6 Hours Per Day (ICD-10-PCS; principal; 2025-02-09)
PROC: 5A09457 Assistance with Respiratory Ventilation, 24-96 Consecutive Hours, Continuous Positive Airway Pressure (ICD-10-PCS; 2025-02-09)
PROC: 05H933Z Insertion of Infusion Device into Right Brachial Vein, Percutaneous Approach (ICD-10-PCS; 2025-02-11)
DX: I13.2 Hypertensive heart and chronic kidney disease with heart failure and with stage 5 chronic kidney disease, or end stage renal disease (principal); E43 Unspecified severe protein-calorie malnutrition; I21.A1 Myocardial infarction type 2; I50.43 Acute on chronic combined systolic (congestive) and diastolic (congestive) heart failure; N18.6 End stage renal disease; J15.69 Pneumonia due to other Gram-negative bacteria; G93.41 Metabolic encephalopathy; J96.22 Acute and chronic respiratory failure with hypercapnia; J96.21 Acute and chronic respiratory failure with hypoxia; E87.4 Mixed disorder of acid-base balance; D61.818 Other pancytopenia; Z99.2 Dependence on renal dialysis; Z95.828 Presence of other vascular implants and grafts; E11.649 Type 2 diabetes mellitus with hypoglycemia without coma; J45.909 Unspecified asthma, uncomplicated; I08.0 Rheumatic disorders of both mitral and aortic valves; I27.23 Pulmonary hypertension due to lung diseases and hypoxia; R64 Cachexia; Z68.1 Body mass index [BMI] 19.9 or less, adult; J84.9 Interstitial pulmonary disease, unspecified; I48.0 Paroxysmal atrial fibrillation; H91.93 Unspecified hearing loss, bilateral; Z79.4 Long term (current) use of insulin; Z79.82 Long term (current) use of aspirin; Z79.899 Other long term (current) drug therapy; Z86.718 Personal history of other venous thrombosis and embolism; Z86.711 Personal history of pulmonary embolism; I25.10 Atherosclerotic heart disease of native coronary artery without angina pectoris; E78.5 Hyperlipidemia, unspecified; E88.09 Other disorders of plasma-protein metabolism, not elsewhere classified; I25.2 Old myocardial infarction; E11.22 Type 2 diabetes mellitus with diabetic chronic kidney disease
CPT/HCPCS: 36415; 36600; 70450-TC; 71045-TC; 71250-TC; 78582; 80048-TC; 80053-TC; 80061-TC; 80076-TC; 81001; 82728-TC; 82803-TC; 82962-TC; 83540-TC; 83605-TC; 83735-TC; 83970; 84100-TC; 84439-TC; 84443-TC; 84484-TC; 85025-TC; 85027-TC; 85730-TC; 86200; 86225; 86235; 86431-TC; 87040-TC; 87081-TC; 87086-TC; 90935-TC; 92526; 92611; 93307-TC; 93970-TC; 94760-TC; 94799-TC; 97110-TC; 97112-TC; 97530-TC; A4223; A9540; A9567; G0378; J0282; J0696; J1650; J1815; J2405; J2919; J3490; J7030; J7050; J7060